=== PATIENT | female | born 1945 | race Caucasian/White ===

== ENCOUNTER 2017-11-10 15:15 | Inpatient (IN) ==
[2017-11-10] MEDS ORDERED: ONDANSETRON 4 MG/2 ML VIAL IV ONE (15:29)
[2017-11-10] MEDS ORDERED: hydrALAZINE 20 MG/1 ML VIAL IV STA (15:44)
[2017-11-10] MEDS: INSULIN REGULAR 100 UNIT/ML SUBCUT SCH ×2 (16:11→21:36)
[2017-11-10] MEDS ORDERED: ZALEPLON 5 MG CAPSULE PO PRN (16:22)
[2017-11-10] MEDS ORDERED: GLUCAGON 1 MG VIAL IM PRN (16:22)
[2017-11-10] MEDS ORDERED: ACETAMINOPHEN 325 MG TABLET PO PRN (16:22)
[2017-11-10] MEDS ORDERED: DEXTROSE 50% 25 GM/50 ML VIAL IV PRN (16:22)
[2017-11-10] MEDS ORDERED: PROMETHAZINE 25 MG TABLET PO PRN (16:30)
[2017-11-10] MEDS: SODIUM CHLORIDE 0.9% 1,000 ML IV SCH (17:11)
[2017-11-10] MEDS: ALBUTEROL/IPRATROPIUM 3 ML NEB RESP TX SCH ×3 (17:49→23:18)
[2017-11-10 18:26] LABS: Apearance,Urine CLEAR (Clear); Bilirubin,Urine Negative (Negative); Blood, Urine Negative (Negative); Glucose,Urine (UA) Negative (Negative); Ketones,Urine Negative (Negative); Nitrite,Urine Negative (Negative); Protein,Urine 30 MG/DL; RBC,Urine 1 /HPF (0-4); Squamous Epithelial Cell,Urine Occasional /HPF (0-10); Urine Color Yellow (Yellow); Urine Specific Gravity 1.012 (1.001-1.035); Urine Urobilinogen < 2.0 EU/DL (0.2-1.0); WBC,Urine 3 /HPF (0-6)
[2017-11-10] MEDS: oxyCODONE ER 20 MG TABLET PO SCH (18:35)
[2017-11-10] MEDS: cefTRIAXone 1,000 MG in SYRINGE 1 EACH IV SCH (18:39)
[2017-11-10] MEDS: CARVEDILOL 12.5 MG TABLET PO SCH (21:36)
[2017-11-10] MEDS: ENOXAPARIN 30 MG/0.3 ML SYRINGE SUBCUT SCH (21:37)
[2017-11-11] MEDS: ALBUTEROL/IPRATROPIUM 3 ML NEB RESP TX SCH ×3 (02:12→10:44)
[2017-11-11] MEDS: SODIUM CHLORIDE 0.9% 1,000 ML IV SCH ×2 (06:41→20:15)
[2017-11-11] MEDS: oxyCODONE ER 20 MG TABLET PO SCH ×2 (07:11→18:35)
[2017-11-11 07:13] LABS: Basophils % 0.1 % (0.0-0.8); Eosinophils % 0.1 % (0.00-10.9); Hematocrit 25.3 VOL% (35.7-47.0); Hemoglobin 7.6 GM/DL (12.0-16.0); Immature Granulocytes % 7.2 %; Immature Granulocytes Absolute 1.13 #; Lymphocytes # 2.1 10*3/uL (1.4-4.0); Lymphocytes % 13.2 % (21.3-54.2); Mean Corpuscular Hemoglobin 31 PG (27-34); Mean Corpuscular Volume 104.1 FL (87-102); Mean Platelet Volume 13.1 FL (9.6-12.0); Monocytes # 3.8 10*3/uL (0.11-0.8); Monocytes % 24.3 % (1.7-12.7); Neutrophils # 8.6 10*3/uL (1.4-7.4); Neutrophils % 55.1 % (38.7-73.9); Platelet Count 87 T/CUMM (130-400); Red Blood Count 2.43 MC/CUMM (3.8-5.5); Red Cell Distribution Width 19.8 % (9.3-17.3); White Blood Count 15.6 T/CUMM (4-12)
[2017-11-11 07:40] LABS: Band Neutrophils 5 % (0-10); Hypochromasia 1+; Lymphocytes 18 % (20-55); Macrocytosis 1+; Metamyelocytes 1 %; Myelocytes 1 %; Segmented Neutrophils 55 % (50-85); Total Cells Counted 100
[2017-11-11 07:41] LABS: Platelet Estimate Decreased
[2017-11-11 07:44] LABS: Albumin 3.4 G/DL (3.4-5.0); Bilirubin,Total 0.8 MG/DL (0.2-1.0); Calcium 7.2 MG/DL (8.5-10.1); Potassium 4.1 MMOL/L (3.5-5.1); Total Protein 6.7 G/DL (6.4-8.3)
[2017-11-11] MEDS: CARVEDILOL 12.5 MG TABLET PO SCH ×2 (08:46→17:56)
[2017-11-11] MEDS: INSULIN REGULAR 100 UNIT/ML SUBCUT SCH ×4 (09:40→20:17)
[2017-11-11] MEDS: PANTOPRAZOLE 40 MG TABLET PO SCH (09:44)
[2017-11-11] MEDS: FUROSEMIDE 80 MG TABLET PO SCH (09:44)
[2017-11-11] MEDS: FAMOTIDINE 20 MG TABLET PO SCH (09:44)
[2017-11-11] MEDS: predniSONE 20 MG TABLET PO SCH (09:45)
[2017-11-11] MEDS: CITALOPRAM 20 MG TABLET PO SCH (09:46)
[2017-11-11] MEDS: ONDANSETRON 4 MG/2 ML VIAL IV PRN ×2 (12:49→20:23)
[2017-11-11] MEDS ORDERED: ALBUTEROL/IPRATROPIUM 3 ML NEB RESP TX PRN (13:16)
[2017-11-11] MEDS: POLYETHYLENE GLYCOL POWDER 17 GM PACK PO SCH (15:50)
[2017-11-11] MEDS: cefTRIAXone 1,000 MG in SYRINGE 1 EACH IV SCH (18:33)
[2017-11-11] MEDS: ENOXAPARIN 30 MG/0.3 ML SYRINGE SUBCUT SCH (21:40)
[2017-11-12] MEDS: oxyCODONE ER 20 MG TABLET PO SCH ×2 (05:52→17:45)
[2017-11-12] MEDS: CARVEDILOL 12.5 MG TABLET PO SCH ×2 (09:02→17:45)
[2017-11-12] MEDS: predniSONE 20 MG TABLET PO SCH (09:02)
[2017-11-12] MEDS: POLYETHYLENE GLYCOL POWDER 17 GM PACK PO SCH (09:02)
[2017-11-12] MEDS: INSULIN REGULAR 100 UNIT/ML SUBCUT SCH ×4 (09:02→21:36)
[2017-11-12] MEDS: PANTOPRAZOLE 40 MG TABLET PO SCH (09:03)
[2017-11-12] MEDS: FAMOTIDINE 20 MG TABLET PO SCH (09:03)
[2017-11-12] MEDS: CITALOPRAM 20 MG TABLET PO SCH (09:03)
[2017-11-12] MEDS: SODIUM CHLORIDE 0.9% 1,000 ML IV SCH ×2 (09:40→21:38)
[2017-11-12] MEDS: FUROSEMIDE 80 MG TABLET PO SCH (10:12)
[2017-11-12] MEDS: cefTRIAXone 1,000 MG in SYRINGE 1 EACH IV SCH (17:46)
[2017-11-12] MEDS: ENOXAPARIN 30 MG/0.3 ML SYRINGE SUBCUT SCH (21:36)
[2017-11-13] MEDS: oxyCODONE ER 20 MG TABLET PO SCH (05:24)
[2017-11-13 06:47] LABS: Basophils % 0.1 % (0.0-0.8); Hematocrit 24.7 VOL% (35.7-47.0); Hemoglobin 7.9 GM/DL (12.0-16.0); Immature Granulocytes % 10.1 %; Immature Granulocytes Absolute 2.07 #; Lymphocytes # 0.8 10*3/uL (1.4-4.0); Lymphocytes % 3.9 % (21.3-54.2); Mean Corpuscular Hemoglobin 32 PG (27-34); Mean Platelet Volume 13.4 FL (9.6-12.0); Monocytes # 1.4 10*3/uL (0.11-0.8); Monocytes % 6.6 % (1.7-12.7); Neutrophils # 16.2 10*3/uL (1.4-7.4); Neutrophils % 79.3 % (38.7-73.9); Platelet Count 66 T/CUMM (130-400); Red Blood Count 2.47 MC/CUMM (3.8-5.5); Red Cell Distribution Width 18.4 % (9.3-17.3); White Blood Count 20.4 T/CUMM (4-12)
[2017-11-13 07:19] LABS: Osmolality,Calculated 290.7 MOS/KG (273-304); Potassium 4.9 MMOL/L (3.5-5.1)
[2017-11-13 07:42] VITALS: BP 152/84
[2017-11-13 07:47] LABS: Band Neutrophils 3 % (0-10); Giant Platelets Few; Lymphocytes 4 % (20-55); Platelet Estimate Decreased; Segmented Neutrophils 84 % (50-85); Total Cells Counted 100
[2017-11-13] MEDS: INSULIN REGULAR 100 UNIT/ML SUBCUT SCH (08:33)
[2017-11-13] MEDS: POLYETHYLENE GLYCOL POWDER 17 GM PACK PO SCH (08:33)
[2017-11-13] MEDS: CARVEDILOL 12.5 MG TABLET PO SCH (08:34)
[2017-11-13] MEDS: CITALOPRAM 20 MG TABLET PO SCH (08:34)
[2017-11-13] MEDS: FAMOTIDINE 20 MG TABLET PO SCH (08:34)
[2017-11-13] MEDS: FUROSEMIDE 80 MG TABLET PO SCH (08:34)
[2017-11-13] MEDS: predniSONE 20 MG TABLET PO SCH (08:34)
[2017-11-13] MEDS: PANTOPRAZOLE 40 MG TABLET PO SCH (08:34)
[2017-11-13] MEDS ORDERED: fentaNYL 100 MCG/HR PATCH TRANSDERM SCH (09:00)
== END 2017-11-13 10:50 | disposition home or self-care (01) | DRG 690 ==
LOC: EDBD → EDUNIT# → N.ED 15:15 → N.EDINP 15:50 → N.2W 16:49 → N.5E 16:50
PROVIDERS: ADMIT Internal Medicine; ATTEND Internal Medicine